=== PATIENT | male | born 1945 | race Caucasian/White ===

== ENCOUNTER 2023-06-07 09:46 | Day surgery (SDC) | payer MEDICARE ==
[~2023-06-07 09:46] MED LIST: Acetaminophen/HYDROcodone 325-5 MG Tab PO PRN; Lactated Ringers 1,000 ML IV SCH
[2023-06-07] MEDS: Lactated Ringers 1,000 ML IV SCH (10:37)
[2023-06-07] MEDS ORDERED: ceFAZolin 1 GM Vial ONE (11:36)
[2023-06-07] MEDS: ceFAZolin 1 GM in Sodium Chloride 0.9% 50 ML IV ONE (11:38)
[2023-06-07] MEDS ORDERED: Propofol 200 MG/20 ML SDV ONE (12:00)
[2023-06-07 12:37] VITALS: BP 141/74; PULSE 56
== END 2023-06-07 13:10 | disposition home or self-care (01) ==
LOC: LB.SDS 09:46
PROVIDERS: ATTEND Orthopaedic Surgery
DX: G56.02 Carpal tunnel syndrome, left upper limb (principal); I10 Essential (primary) hypertension; Z79.899 Other long term (current) drug therapy
CPT/HCPCS: J0690; J2704; J3490; J7120